=== PATIENT | male | born 1965 | race Caucasian/White ===

== ENCOUNTER 2017-04-12 19:37 | Emergency (ER) | payer MEDICAID ==
--- NOTE | 2017-04-12 21:34 | EDM.PDOCBH ---
ED HPI GENERAL MEDICAL PROBLEM - General Chief Complaint: Drug or Alcohol Abuse Time Seen by Provider: 04/12/17 19:37 Source of Information: Reports: Patient, Police - History of Present Illness INITIAL COMMENTS - FREE TEXT/NARRATIVE: 52 years old w m came the the ed with the police after he was found drunk in the car, did not drive, however. pt came to the ed for longterm clearance. Pt has IDDM with poor compliance and is drinking daily. no other acute medical issues. BP 105/83 pulse 91 RR 16 pulse ox 96 temp 36.4 Onset: Today Onset Date: 04/12/17 Onset Time: 19:00 Duration: Chronic Location: Reports: Generalized Improves with: Reports: None Worsens with: Reports: None Context: Reports: Other (pt was found drunk while in the car) Associated Symptoms: Reports: No Other Symptoms - Related Data Allergies Allergy/AdvReac Type Severity Reaction Status Date / Time No Known Allergies Allergy Verified 04/12/17 19:56 Home Meds: Home Meds . [Unable to Verify Home Med List] 04/12/17 [History] Past Medical History Cardiovascular History: Reports: Hypertension, [place] Other Cardiovascular History: [place] x2, last 07/05/2015 Endocrine/Metabolic History: Reports: Diabetes, Type I Social & Family History - Tobacco Use Smoking Status *Q: Never Smoker Second Hand Smoke Exposure: No - Caffeine Use Caffeine Use: Reports: None - Recreational Drug Use Recreational Drug Use: No ED ROS GENERAL - Review of Systems Review Of Systems: See Below Constitutional: Reports: No Symptoms HEENT: Reports: No Symptoms Respiratory: Reports: No Symptoms Cardiovascular: Reports: No Symptoms Endocrine: Reports: No Symptoms GI/Abdominal: Reports: No Symptoms : Reports: No Symptoms Musculoskeletal: Reports: No Symptoms Skin: Reports: No Symptoms Neurological: Reports: No Symptoms Psychiatric: Reports: No Symptoms Hematologic/Lymphatic: Reports: No Symptoms Immunologic: Reports: No Symptoms ED EXAM, BEHAVIORAL HEALTH - Physical Exam Exam: See Below Exam Limited By: No Limitations General Appearance: Alert, WD/WN, No Apparent Distress Eye Exam: Bilateral Eye: Normal Inspection Ears: Normal External Exam Nose: Normal Inspection Throat/Mouth: Normal Inspection Head: Atraumatic Neck: Normal Inspection Respiratory/Chest: No Respiratory Distress, Lungs Clear, Normal Breath Sounds Cardiovascular: Normal Peripheral Pulses, Regular Rate, Rhythm, No Edema GI/Abdominal: Normal Bowel Sounds, Soft, Non-Tender, No Organomegaly (Male) Exam: Deferred Rectal (Males) Exam: Deferred Back Exam: Normal Inspection, Full Range of Motion Extremities: Normal Inspection, Normal Range of Motion, Non-Tender, No Pedal Edema Neurological: Alert, Normal Mood/Affect, CN II-XII Intact, Normal Cognition, Normal Gait, Oriented x 3 Psychiatric: Alert, Normal Affect, Normal Cognition, Normal Mood Skin Exam: Warm, Dry, Intact, Normal color, No rash COURSE, BEHAVIORAL HEALTH COMP - Course Vital Signs: Last Vital Signs Temp 36.8 C 04/12/17 19:57 Pulse 91 04/12/17 19:57 Resp 16 04/12/17 19:57 BP 105/83 04/12/17 19:57 Pulse Ox 97 04/12/17 19:57 52 years old w m came the the ed with the police after he was found drunk in the car, did not drive, however. pt came to the ed for longterm clearance. Pt has IDDM with poor compliance and is drinking daily. no other acute medical issues. BP 105/83 pulse 91 RR 16 pulse ox 96 temp 36.4 PE: 52 y.o.w.m chronic ETOH abuse with peripheral muscle wasting. labs: WBC 3.6 ETOH 0.37 Na 128 K 4.1 GFR > 60 GLc 225 A1C 8.8 Impression: Poor Diabetic compliance, ETOH abuse, pt is cleared for longterm Tx: none Plan: As per police, pt will be only for a few hours in longterm till picked up through bail. D/C with instructions Orders, Labs, Meds: Laboratory Tests 04/12/17 04/12/17 04/12/17 Range/Units 19:55 19:55 19:55 WBC (4.5-12.0) X10-3/uL RBC (4.30-5.75) x10(6)uL Hgb (11.5-15.5) g/dL Hct (30.0-51.3) % MCV (80-96) fL MCH (27.7-33.6) pg MCHC (32.2-35.4) g/dL RDW (11.5-15.5) % Plt Count (125-369) X10(3)uL MPV (7.4-10.4) fL Neut % (Auto) (46-82) % Lymph % (Auto) (13-37) % [place] % (Auto) (4-12) % Eos % (Auto) (1.0-5.0) % Baso % (Auto) (0-2) % Neut # (Auto) (1.6-8.3) # Lymph # (Auto) (0.6-5.0) # [place] # (Auto) (0.0-1.3) # Eos # (Auto) (0.0-0.8) # Baso # (Auto) (0.0-0.2) # Sodium 128 L (135-145) mmol/L Potassium 4.1 (3.5-5.3) mmol/L Chloride 90 L (100-110) mmol/L Carbon Dioxide 24 (23-29) mmol/L BUN 8 (5-20) mg/dL Creatinine 0.8 (0.6-1.3) mg/dL Est Cr Clr Drug Dosing 104.43 mL/min Estimated GFR (MDRD) > 60 (>60) BUN/Creatinine Ratio 10.0 (9-20) Glucose 227 H (80-116) mg/dL Hemoglobin A1c 8.8 H (4.0-6.0) % Calcium 9.0 (8.6-10.2) mg/dL Ethyl Alcohol 0.37 H* (<0.01) % 04/12/ Range/Units 19:55 WBC 3.5 L (4.5-12.0) X10-3/uL RBC 4.50 (4.30-5.75) x10(6)uL Hgb 15.0 (11.5-15.5) g/dL Hct 43.3 (30.0-51.3) % MCV 96.3 H (80-96) fL MCH 33.3 (27.7-33.6) pg MCHC 34.6 (32.2-35.4) g/dL RDW 13.4 (11.5-15.5) % Plt Count 89 L (125-369) X10(3)uL MPV 8.5 (7.4-10.4) fL Neut % (Auto) 52.5 (46-82) % Lymph % (Auto) 35.5 (13-37) % [place] % (Auto) 10.3 (4-12) % Eos % (Auto) 1 (1.0-5.0) % Baso % (Auto) 1 (0-2) % Neut # (Auto) 1.9 (1.6-8.3) # Lymph # (Auto) 1.2 (0.6-5.0) # [place] # (Auto) 0.4 (0.0-1.3) # Eos # (Auto) 0.0 (0.0-0.8) # Baso # (Auto) 0.0 (0.0-0.2) # Sodium (135-145) mmol/L Potassium (3.5-5.3) mmol/L Chloride (100-110) mmol/L Carbon Dioxide (23-29) mmol/L BUN (5-20) mg/dL Creatinine (0.6-1.3) mg/dL Est Cr Clr Drug Dosing mL/min Estimated GFR (MDRD) (>60) BUN/Creatinine Ratio (9-20) Glucose (80-116) mg/dL Hemoglobin A1c (4.0-6.0) % Calcium (8.6-10.2) mg/dL Ethyl Alcohol (<0.01) % Departure - Departure Time of Disposition: 21:32 Disposition: Home, Self-Care 01 Condition: Good Clinical Impression: Medical clearance for incarceration - Discharge Information Referrals: PCP,None [Primary Care Provider] - Forms: ED Department Discharge Additional Instructions: you are cleared for longterm, please no ETON. please cont your meds, please f/u
== END 2017-04-12 21:39 | disposition home or self-care (01) ==
LOC: FB.ED 19:37
DX: Z02.89 Encounter for other administrative examinations (principal); I10 Essential (primary) hypertension; E10.9 Type 1 diabetes mellitus without complications; M62.50 Muscle wasting and atrophy, not elsewhere classified, unspecified site; F10.20 Alcohol dependence, uncomplicated; Y90.0 Blood alcohol level of less than 20 mg/100 ml
CPT/HCPCS: 36415; 80048; 83036; 85025; 99283; G0480

== ENCOUNTER 2017-04-13 14:41 | Inpatient (IN) | payer MEDICAID ==
[2017-04-13] MEDS ORDERED: Sodium Chloride 0.9% 1,000 ML IV ONE (14:44)
[2017-04-13] MEDS ORDERED: LORazepam 2 MG/ML MDV IVPUSH ONE (14:52)
--- NOTE | 2017-04-13 14:52 | EDM.PDOC ---
ED HPI GENERAL MEDICAL PROBLEM - General Chief Complaint: Neuro Symptoms/Deficits Stated Complaint: SEIZURE Time Seen by Provider: 04/13/17 14:41 Source of Information: Reports: Patient, EMS, Police History Limitations: Reports: Altered Mental Status - History of Present Illness INITIAL COMMENTS - FREE TEXT/NARRATIVE: 52 y.o.w.m with h/o chronic ETOH abuse, ETOH related Szs, IDDM, noncompliance. i have seen him in the ED yesterday for fci clearance. His ETOH was 0.37 He was was cleared for fci because, as per office, pt will be in fci for a few hours only till he is "bailed out". Today, pt had a TC seizure while walking to his cell, witnessed. 911 was called. BS was 552 as the EMS arrived. Pt had a tongue bite at his r side of his tongue and was lethargic. Pt had a fine peripheral fine Tremor BP 162/82 pulse 122 temp 36.2 pulse ox 94% RA, on Sz precaution Onset: Today Onset Date: 04/13/17 Onset Time: 14:00 Duration: Minutes: Location: Reports: Other (s/p GM sz) - Related Data Allergies Allergy/AdvReac Type Severity Reaction Status Date / Time No Known Allergies Allergy Verified 04/13/17 15:32 Home Meds: Home Meds Folic Acid 1 mg PO DAILY 04/13/17 [History] Lisinopril 20 mg PO DAILY 04/13/17 [History] Metoprolol Succinate 12.5 mg PO BID 04/13/17 [History] Naltrexone 50 mg PO DAILY 04/13/17 [History] Sertraline [Zoloft] 100 mg PO DAILY 04/13/17 [History] atorvaSTATin [Lipitor] 10 mg PO DAILY 04/13/17 [History] traZODone 100 mg PO BEDTIME 04/13/17 [History] Past Medical History Cardiovascular History: Reports: Hypertension, [place] Other Cardiovascular History: [place] x2, last 07/05/2015 Endocrine/Metabolic History: Reports: Diabetes, Type I Social & Family History - Tobacco Use Smoking Status *Q: Never Smoker Second Hand Smoke Exposure: No - Caffeine Use Caffeine Use: Reports: None - Recreational Drug Use Recreational Drug Use: No ED ROS GENERAL - Review of Systems Review Of Systems: Unable To Obtain (lethargic, post ictal) - Physical Exam Exam: See Below Exam Limited By: Altered Mental Status General Appearance: WD/WN, No Apparent Distress, Lethargic, Mild Distress Eye Exam: Bilateral Eye: Normal Inspection Ears: Normal External Exam Nose: Normal Inspection Throat/Mouth: Other (tongue bite) Head Exam: Atraumatic, Normocephalic Course - Vital Signs Text/Narrative:: 52 y.o.w.m with h/o chronic ETOH abuse, ETOH related Szs, IDDM, noncompliance. i have seen him in the ED yesterday for fci clearance. His ETOH was 0.37 He was was cleared for fci because, as per office, pt will be in fci for a few hours only till he is "bailed out". Today, pt had a TC seizure while walking to his cell, witnessed. 911 was called. BS was 552 as the EMS arrived. Pt had a tongue bite at his r side of his tongue and was lethargic. Pt had a fine peripheral fine Tremor BP 162/82 pulse 122 temp 36.2 pulse ox 94% RA, on Sz precaution. Pt hit his head while he fell as per police. PE: Letargic, fine peripheral tremor, Tongue bite Labs; BS 435, Na 126 K 4.7 WBC 5.3 HGB 13.9 HCT 39.4 ETOH 0.01 UDS is pending Imaging: CT head: results are pending Impression: ETOH related Gand Mal Seizure, HTN. IDDM with hyperglycemia, Tx: Reg insulin, NS, Ativan. 4.31 pm consultation: Dr. Starr, Hospitalist: accept pt for admission to ICU on [facility] protocol. Reexam: Improved BP 162/87 BS 223, tremor improved. ABG results are pending Plan: Admit to ICU Last Recorded V/S: Last Vital Signs Temp 37.2 C 04/13/17 16:30 Pulse 115 H 04/13/17 16:30 Resp 18 04/13/17 17:00 BP 159/88 H 04/13/17 17:00 Pulse Ox 97 04/13/17 17:00 - Orders/Labs/Meds Orders: Active Orders 24 hr Category Date Time Status Sodium Chloride 0.9% [Saline Flush] Med 04/13/17 14:44 Active 10 ml FLUSH ASDIRECTED PRN Peripheral IV Insertion Adult [OM.PC] Routine Oth 04/13/17 14:44 Ordered Seizure Precautions [OM.PC] Routine Oth 04/13/17 14:59 Ordered Medication Orders Lactated Ringer's (Ringers, Lactated) 1,000 mls @ 125 mls/hr IV ASDIRECTED PEGGY Last Admin: 04/13/17 16:50 Dose: 125 mls/hr Insulin Aspart (Novolog) 0 unit SUBCUT TIDMEALS PEGGY PRN Reason: Protocol Sodium Chloride (Saline Flush) 10 ml FLUSH ASDIRECTED PRN PRN Reason: Keep Vein Open Last Admin: 04/13/17 16:23 Dose: 10 ml Labs: Laboratory Tests 04/13/17 04/13/17 04/13/17 Range/Units 14:55 14:55 14:55 WBC 5.4 (4.5-12.0) X10-3/uL RBC 4.09 L (4.30-5.75) x10(6)uL Hgb 13.8 (11.5-15.5) g/dL Hct 39.6 (30.0-51.3) % MCV 97.0 H (80-96) fL MCH 33.7 H (27.7-33.6) pg MCHC 34.7 (32.2-35.4) g/dL RDW 13.2 (11.5-15.5) % Plt Count 102 L (125-369) X10(3)uL MPV 8.8 (7.4-10.4) fL Neut % (Auto) 72.9 (46-82) % Lymph % (Auto) 14.8 (13-37) % [place] % (Auto) 11.6 (4-12) % Eos % (Auto) 0 L (1.0-5.0) % Baso % (Auto) 1 (0-2) % Neut # (Auto) 4.0 (1.6-8.3) # Lymph # (Auto) 0.8 (0.6-5.0) # [place] # (Auto) 0.6 (0.0-1.3) # Eos # (Auto) 0.0 (0.0-0.8) # Baso # (Auto) 0.0 (0.0-0.2) # Sodium 126 L (135-145) mmol/L Potassium 4.7 (3.5-5.3) mmol/L Chloride 91 L (100-110) mmol/L Carbon Dioxide 14 L (23-29) mmol/L BUN 14 (5-20) mg/dL Creatinine 1.3 (0.6-1.3) mg/dL Est Cr Clr Drug Dosing TNP Estimated GFR (MDRD) 58 L (>60) BUN/Creatinine Ratio 10.8 (9-20) Glucose 434 H* D (80-116) mg/dL Calcium 8.8 (8.6-10.2) mg/dL Total Bilirubin 2.2 H (0.1-1.3) mg/dL Direct Bilirubin 0.3 H (0.1-0.2) mg/dL AST 125 H (5-27) IU/L ALT 67 H (14-26) IU/L Alkaline Phosphatase 88 (56-112) IU/L Creatine Kinase (60-160) IU/L Total Protein 8.1 H (6.0-8.0) g/dL Albumin 4.6 (3.5-5.2) g/dL Ethyl Alcohol < 0.01 (<0.01) % 04/13/17 Range/Units 14:55 WBC (4.5-12.0) X10-3/uL RBC (4.30-5.75) x10(6)uL Hgb (11.5-15.5) g/dL Hct (30.0-51.3) % MCV (80-96) fL MCH (27.7-33.6) pg MCHC (32.2-35.4) g/dL RDW (11.5-15.5) % Plt Count (125-369) X10(3)uL MPV (7.4-10.4) fL Neut % (Auto) (46-82) % Lymph % (Auto) (13-37) % [place] % (Auto) (4-12) % Eos % (Auto) (1.0-5.0) % Baso % (Auto) (0-2) % Neut # (Auto) (1.6-8.3) # Lymph # (Auto) (0.6-5.0) # [place] # (Auto) (0.0-1.3) # Eos # (Auto) (0.0-0.8) # Baso # (Auto) (0.0-0.2) # Sodium (135-145) mmol/L Potassium (3.5-5.3) mmol/L Chloride (100-110) mmol/L Carbon Dioxide (23-29) mmol/L BUN (5-20) mg/dL Creatinine (0.6-1.3) mg/dL Est Cr Clr Drug Dosing Estimated GFR (MDRD) (>60) BUN/Creatinine Ratio (9-20) Glucose (80-116) mg/dL Calcium (8.6-10.2) mg/dL Total Bilirubin (0.1-1.3) mg/dL Direct Bilirubin (0.1-0.2) mg/dL AST (5-27) IU/L ALT (14-26) IU/L Alkaline Phosphatase (56-112) IU/L Creatine Kinase 269 H (60-160) IU/L Total Protein (6.0-8.0) g/dL Albumin (3.5-5.2) g/dL Ethyl Alcohol (<0.01) % Meds: Medications Generic Name Dose Route Start Last Admin Trade Name Freq PRN Reason Stop Dose Admin Lactated Ringer's 1,000 mls @ 125 mls/hr 04/13/17 16:45 04/13/17 16:50 Ringers, Lactated IV 125 mls/hr ASDIRECTED PEGGY Administration Insulin Aspart 0 unit 04/13/17 18:00 Novolog SUBCUT TIDMEALS [facility] Protocol Sodium Chloride 10 ml 04/13/17 14:44 04/13/17 16:23 Saline Flush FLUSH 10 ml ASDIRECTED PRN Administration Keep Vein Open Discontinued Medications Generic Name Dose Route Start Last Admin Trade Name Freq PRN Reason Stop Dose Admin Clonidine HCl 0.1 mg 04/13/17 16:04 04/13/17 16:40 Catapres PO 04/13/17 16:05 Not Given ONETIME ONE Sodium Chloride 1,000 mls @ 999 mls/hr 04/13/17 14:44 04/13/17 15:17 Normal Saline IV 04/13/17 15:44 999 mls/hr .BOLUS ONE Administration Lactated Ringer's 1,000 mls @ 125 mls/hr 04/13/17 16:15 Ringers, Lactated IV ASDIRECTED PEGGY Insulin Human Regular 7 unit 04/13/17 17:30 Humulin R SUBCUT BIDAC PEGGY Protocol Insulin Human Regular 7 unit 04/13/17 15:03 04/13/17 15:11 Humulin R SUBCUT 04/13/17 15:04 7 units BIDAC STA Administration Protocol Insulin Human Regular 10 unit 04/13/17 16:05 04/13/17 16:47 Humulin R SUBCUT 04/13/17 16:06 Not Given ONETIME STA Protocol Labetalol HCl 10 mg 04/13/17 16:08 04/13/17 16:39 Normodyne IVPUSH 04/13/17 16:09 Not Given ONETIME ONE Protocol Lorazepam 1 mg 04/13/17 14:52 04/13/17 15:04 Ativan IVPUSH 04/13/17 14:53 1 mg ONETIME ONE Administration Lorazepam 1 mg 04/13/17 16:07 04/13/17 16:21 Ativan IVPUSH 04/13/17 16:08 1 mg ONETIME STA Administration Lorazepam 1 mg 04/13/17 16:14 Ativan IV Q4H PRN Nausea/Vomiting Departure - Departure Time of Disposition: 16:49 Disposition: Admitted As Inpatient 67 Condition: Fair Clinical Impression: Seizure EtOH dependence Qualifiers: Substance use status: other alcohol-induced disorder Qualified Code(s): F10.288 - Alcohol dependence with other alcohol-induced disorder - Discharge Information - My Orders Last 24 Hours: My Active Orders 04/13/17 14:44 Sodium Chloride 0.9% [Saline Flush] 10 ml FLUSH ASDIRECTED PRN Peripheral IV Insertion Adult [OM.PC] Routine 04/13/17 14:59 Seizure Precautions [OM.PC] Routine - Assessment/Plan Last 24 Hours: My Active Orders 04/13/17 14:44 Sodium Chloride 0.9% [Saline Flush] 10 ml FLUSH ASDIRECTED PRN Peripheral IV Insertion Adult [OM.PC] Routine 04/13/17 14:59 Seizure Precautions [OM.PC] Routine
[2017-04-13] MEDS ORDERED: Insulin Regular, Human 100 Units/ML 3 ML Vial SUBCUT STA ×2 (15:03→16:05)
[2017-04-13] MEDS ORDERED: cloNIDine 0.1 MG Tab PO ONE (16:04)
[2017-04-13] MEDS ORDERED: LORazepam 2 MG/ML MDV IVPUSH STA (16:07)
[2017-04-13] MEDS ORDERED: Labetalol 20 MG/4 ML Syringe IVPUSH ONE (16:08)
[2017-04-13] MEDS ORDERED: LORazepam 2 MG/ML MDV IV PRN (16:14)
[2017-04-13] MEDS ORDERED: Lactated Ringers 1,000 ML IV SCH (16:15)
[2017-04-13] MEDS: Sodium Chloride 0.9% 10 ML Syringe FLUSH PRN (16:23)
[2017-04-13] MEDS: Insulin Aspart 100 Units/ML 3 ML Pen SUBCUT SCH (16:30)
[2017-04-13] MEDS: Lactated Ringers 1,000 ML IV SCH (16:50)
[2017-04-13] MEDS ORDERED: Insulin Regular, Human 100 Units/ML 3 ML Vial SUBCUT SCH (17:30)
--- NOTE | 2017-04-13 17:55 | PCM.HP ---
H&P History of Present Illness - General Date of Service: 04/13/17 Admit Problem/Dx: Admission Diagnosis/Problem Admission Diagnosis/Problem Seizure Source of Information: Patient, EMS Notes Reviewed, Police - History of Present Illness Initial Comments - Free Text/Narative: 52-year-old male known to have alcohol dependence. Was brought to by law enforcement after he had a tonic-clonic seizure at the snf. Currently I am not sure how long it lasted but he was post ictal at the ER, with no bowel or urine incontinence. He stated that he has had a seizure before,about 4 years ago also while withdrawing from alcohol also. He was here yesterday,but discharged to the To the snf. His ETOH level was 0.37. He also states that he has Type 1 diabetes of unknown control. He has depression,hypertension and a history of coronary disease previously stable.At the time that I examined him,he complains of no headache no chest pain. He feels slightly anxious trembling and sweaty. He currently sees Dr. Chou in [facility] - Related Data Allergies/Adverse Reactions: Allergies Allergy/AdvReac Type Severity Reaction Status Date / Time No Known Allergies Allergy Verified 04/13/17 15:32 Home Medications: Home Meds Amylase/Lipase/Protease [Rashida CRANDALL 24,000 Unit] 1 cap PO .6 TIMES PER DAY [History] Folic Acid 1 mg PO DAILY 04/13/17 [History] Insulin Aspart [Novolog] 1 unit SQ TIDMEALS 04/13/17 [History] Insulin Glargine,Hum.Rec.Anlog [Lantus Solostar] 28 unit SQ BEDTIME 04/13/17 [ History] LORazepam 1 mg PO TID PRN 04/13/17 [History] Lisinopril 20 mg PO DAILY 04/13/17 [History] Metoprolol Succinate 12.5 mg PO BID 04/13/17 [History] Naltrexone 50 mg PO DAILY 04/13/17 [History] Sertraline [Zoloft] 100 mg PO DAILY 04/13/17 [History] atorvaSTATin [Lipitor] 10 mg PO DAILY 04/13/17 [History] traZODone 100 mg PO BEDTIME 04/13/17 [History] Past Medical History Cardiovascular History: Reports: Hypertension, [place] Other Cardiovascular History: [place] x2, last 07/05/2015 Neurological History: Reports: Seizure Psychiatric History: Reports: Other (See Below) Other Psychiatric History: alcohol use Endocrine/Metabolic History: Reports: Diabetes, Type I Social & Family History - Family History Family Medical History: Unobtainable - Tobacco Use Smoking Status *Q: Never Smoker Second Hand Smoke Exposure: No - Caffeine Use Caffeine Use: Reports: None - Recreational Drug Use Recreational Drug Use: No H&P Review of Systems - Review of Systems: Review Of Systems: See Below General: Reports: No Symptoms HEENT: Reports: No Symptoms Pulmonary: Reports: No Symptoms Cardiovascular: Reports: No Symptoms Gastrointestinal: Reports: No Symptoms Genitourinary: Reports: No Symptoms Musculoskeletal: Reports: No Symptoms Skin: Reports: No Symptoms Psychiatric: Reports: Depression Neurological: Reports: Seizure, Tremors Hematologic/Lymphatic: Reports: No Symptoms Immunologic: Reports: No Symptoms Exam - Exam Exam: See Below - Vital Signs Vital Signs: Last Vital Signs Temp 99.0 F 04/13/17 16:30 Pulse 115 H 04/13/17 16:30 Resp 18 04/13/17 17:00 BP 159/88 H 04/13/17 17:00 Pulse Ox 97 04/13/17 17:00 Weight: 66.315 kg - Exam General: Alert, Oriented, 4 HEENT: PERRLA, Hearing Intact, Mucosa Moist & [place], Nares Patent, Normal Nasal Septum, Posterior Pharynx Clear, Conjunctiva Clear, EOMI, EACs Clear, TMs Clear Neck: Supple, Trachea Midline, 2 Lungs: Clear to Auscultation, Normal Respiratory Effort Cardiovascular: Regular Rate, Regular Rhythm GI/Abdominal Exam: Normal Bowel Sounds, Soft, Non-Tender, No Organomegaly, No Distention, No Abnormal Bruit, No Mass, Pelvis Stable (Male) Exam: Deferred Rectal (Males) Exam: Deferred Back Exam: Normal Inspection, Full Range of Motion, NT Extremities: Normal Inspection, Normal Range of Motion, Non-Tender, No Pedal Edema, Normal Capillary Refill Skin: Warm, Dry, Intact Neurological: Cranial Nerves Intact, Reflexes Equal Bilateral Neuro Extensive - Mental Status: Alert, Oriented x3, Normal Mood/Affect, Normal Cognition Neuro Extensive - Motor, Sensory, Reflexes: CN II-XII Intact, Normal Gait, Normal Reflexes Psychiatric: Alert, Normal Affect, Normal Mood - Patient Data Lab Results Last 24 hrs: Laboratory Results - last 24 hr 04/13/17 04/13/17 Range/Units 16:28 16:44 POC Glucose 203 H (80-116) mg/dL Urine Opiates Screen Negative (NEGATIVE) Ur Oxycodone Screen Negative (NEGATIVE) Ur Propoxyphene Screen Negative (NEGATIVE) Ur Barbituates Screen Negative (NEGATIVE) Ur Tricyclics Screen Negative (NEGATIVE) Ur Phencyclidine Scrn Negative (NEGATIVE) Ur Amphetamine Screen Negative (NEGATIVE) Urine MDMA Screen Negative (NEGATIVE) U Benzodiazepines Scrn Positive H (NEGATIVE) U Cocaine Metab Screen Negative (NEGATIVE) U Marijuana (THC) Screen Negative (NEGATIVE) Result Diagrams: 04/13/17 14:55 04/13/17 14:55 EKG INTERPRETATION Rhythm: NSR *Q Meaningful Use (ADM) - VTE *Q VTE Criteria *Q: - Stroke *Q Stroke Criteria *Q: - AMI *Q AMI Criteria *Q: - Problem List (1) Alcohol withdrawal SNOMED Code(s): 375746464 ICD Code: F10.239 - ALCOHOL DEPENDENCE WITH WITHDRAWAL, UNSPECIFIED Status : Acute Current Visit: Yes Qualifiers: Complication of substance-induced condition: with unspecified complication Qualified Code(s): F10.239 - Alcohol dependence with withdrawal, unspecified (2) Seizure due to alcohol withdrawal SNOMED Code(s): 650495239 ICD Code: F10.239 - ALCOHOL DEPENDENCE WITH WITHDRAWAL, UNSPECIFIED; R56.9 - UNSPECIFIED CONVULSIONS Status: Acute Current Visit: Yes Qualifiers: Complication of substance-induced condition: with unspecified complication Qualified Code(s): F10.239 - Alcohol dependence with withdrawal, unspecified; R56.9 - Unspecified convulsions; R56.9 - Unspecified convulsions; R56.9 - Unspecified convulsions; R56.9 - Unspecified convulsions (3) Diabetes type 1, uncontrolled SNOMED Code(s): 57605753 ICD Code: E10.65 - TYPE 1 DIABETES MELLITUS WITH HYPERGLYCEMIA Status: Acute Current Visit: Yes (4) HTN (hypertension) SNOMED Code(s): 95170861 ICD Code: I10 - ESSENTIAL (PRIMARY) HYPERTENSION Status: Acute Current Visit: Yes Qualifiers: Hypertension type: essential hypertension Qualified Code(s): I10 - Essential (primary) hypertension (5) EtOH dependence SNOMED Code(s): 46340830 ICD Code: F10.20 - ALCOHOL DEPENDENCE, UNCOMPLICATED Status: Acute Current Visit: Yes Qualifiers: Substance use status: other alcohol-induced disorder Qualified Code(s): F10.288 - Alcohol dependence with other alcohol-induced disorder (6) Hyponatremia SNOMED Code(s): 91354146 ICD Code: E87.1 - HYPO-OSMOLALITY AND HYPONATREMIA Status: Acute Current Visit: Yes Problem List Initiated/Reviewed/Updated: Yes Orders Last 24hrs: Active Orders 24 hr Category Date Time Status Bedrest Bathroom Privileges [RC] ASDIRECTED Care 04/13/17 17:46 Ordered Blood Glucose Check, Bedside [RC] TIDMEALS Care 04/13/17 17:46 Ordered CIWAA Assessment [RC] ASDIRECTED Care 04/13/17 16:25 Active Cardiac Monitoring [RC] CONTINUOUS Care 04/13/17 17:47 Ordered Height and Weight [RC] DAILY Care 04/13/17 17:46 Ordered Intake and Output [RC] QSHIFT Care 04/13/17 17:47 Ordered Oxygen Therapy [RC] PRN Care 04/13/17 17:46 Ordered VTE/DVT Education [RC] Per Unit Routine Care 04/13/17 17:46 Ordered Consistent Carbohydrate Diet [DIET] Diet 04/13/17 Dinner Ordered Head wo Cont [CT] Stat Exams 04/13/17 16:48 Taken ABG [BLOOD GAS ARTERIAL] [BG] Routine Lab 04/13/17 16:51 Ordered CBC W/O DIFF,HEMOGRAM [HEME] AM Lab 04/14/17 05:11 Ordered COMPREHENSIVE METABOLIC PN,CMP [CHEM] AM Lab 04/14/17 05:11 Ordered MAGNESIUM [CHEM] Stat Lab 04/13/17 17:46 Ordered PHOSPHORUS [CHEM] AM Lab 04/14/17 05:11 Ordered Insulin Aspart [NovoLOG] Med 04/13/17 18:00 Active See Protocol SUBCUT TIDMEALS LORazepam [Ativan] Med 04/13/17 17:46 Ordered 1 mg IV Q2H PRN Lactated Ringers [Ringers, Lactated] 1,000 ml Med 04/13/17 16:45 Active IV ASDIRECTED Thiamine [Vitamin B-1] Med 04/13/17 18:00 Ordered 100 mg IV DAILY Medication Orders Lactated Ringer's (Ringers, Lactated) 1,000 mls @ 125 mls/hr IV ASDIRECTED [facility] Last Admin: 04/13/17 16:50 Dose: 125 mls/hr Insulin Aspart (Novolog) 0 unit SUBCUT TIDMEALS [facility] PRN Reason: Protocol Lorazepam (Ativan) 1 mg IV Q2H PRN PRN Reason: Nausea/Vomiting Sodium Chloride (Saline Flush) 10 ml FLUSH ASDIRECTED PRN PRN Reason: Keep Vein Open Last Admin: 04/13/17 16:23 Dose: 10 ml Thiamine HCl (Vitamin B-1) 100 mg IV DAILY [facility] Assessment/Plan Comment:: Admit for IV fluid resuscitation, lorazepam when necessary and sliding scale of insulin. Also given thiamine 100 mg IV. Will allow him to eat regularly with her carbohydrate restricted diet, and put him on seizure precautions. I will repeat a basic metabolic panel in the morning.
[2017-04-13] MEDS: Thiamine 200 MG/2 ML MDV IV SCH (18:23)
[2017-04-13] MEDS: LORazepam 2 MG/ML MDV IV PRN ×3 (18:29→23:43)
[2017-04-13] MEDS ORDERED: traZODone 50 MG Tab ONE (20:07)
[2017-04-13] MEDS: traZODone 100 MG Tab PO SCH (20:15)
[2017-04-13] MEDS ORDERED: Metoprolol Succinate 25 MG Tab.ER PO SCH (21:00)
[2017-04-14] MEDS: Lactated Ringers 1,000 ML IV SCH (00:53)
--- NOTE | 2017-04-14 08:12 | PCM.PN ---
- General Info Date of Service: 04/14/17 Admission Dx/Problem (Free Text): Patient states he is less shaky today and he feels better. He denies fevers, chills, chest pain, shortness breath, leg swelling. He has had no seizures since she's been in her. He states his last seizure was due to a cholesterol. He says he does drink. He's been to treatment before and he says it doesn't help him. - Patient Data Vitals - Most Recent: Last Vital Signs Temp 98.4 F 04/14/17 05:00 Pulse 90 04/14/17 05:00 Resp 18 04/14/17 05:00 BP 131/94 H 04/14/17 05:00 Pulse Ox 98 04/14/17 05:00 Weight - Most Recent: 161 lb I&O - Last 24 Hours: Intake & Output 04/13/17 04/14/17 04/14/17 22:59 06:59 14:59 Intake Total 1213 1332 Output Total 400 1250 Balance 813 82 Lab Results Last 24 Hours: Laboratory Results - last 24 hr 04/13/17 04/13/17 04/13/17 Range/Units 16:28 16:44 17:45 WBC (4.5-12.0) X10-3/uL RBC (4.30-5.75) x10(6)uL Hgb (11.5-15.5) g/dL Hct (30.0-51.3) % MCV (80-96) fL MCH (27.7-33.6) pg MCHC (32.2-35.4) g/dL RDW (11.5-15.5) % Plt Count (125-369) X10(3)uL POC VBG pH 7.43 H (7.31-7.41) POC VBG pCO2 34.6 L (41-51) mmHG POC VBG HCO3 23.1 (23-28) mmol/L POC VBG Total CO2 24 (24-29) mmol/L POC VBG Base Excess -1 (-2-3) mmol/L Sodium (135-145) mmol/L Potassium (3.5-5.3) mmol/L Chloride (100-110) mmol/L Carbon Dioxide (23-29) mmol/L BUN (5-20) mg/dL Creatinine (0.6-1.3) mg/dL Est Cr Clr Drug Dosing mL/min Estimated GFR (MDRD) (>60) BUN/Creatinine Ratio (9-20) Glucose (80-116) mg/dL POC Glucose 203 H (80-116) mg/dL Calcium (8.6-10.2) mg/dL Phosphorus (3.0-4.6) mg/dL Total Bilirubin (0.1-1.3) mg/dL AST (5-27) IU/L ALT (14-26) IU/L Alkaline Phosphatase (56-112) IU/L Total Protein (6.0-8.0) g/dL Albumin (3.5-5.2) g/dL Globulin g/dL Albumin/Globulin Ratio Urine Color (YELLOW) Urine Appearance (CLEAR) Urine pH (5.0-6.5) Ur Specific [place] (1.010-1.025) Urine Protein (NEGATIVE) mg/dL Urine Glucose (UA) (NEGATIVE) mg/dL Urine Ketones (NEGATIVE) mg/dL Urine Occult Blood (NEGATIVE) Urine Nitrite (NEGATIVE) Urine Bilirubin (NEGATIVE) Urine Urobilinogen (NEGATIVE) mg/dL Ur Leukocyte Esterase (NEGATIVE) Urine RBC (0) Urine WBC (0) Ur Squamous Epith Cells (NS,R,O) Urine Bacteria (NS) Urine Opiates Screen Negative (NEGATIVE) Ur Oxycodone Screen Negative (NEGATIVE) Ur Propoxyphene Screen Negative (NEGATIVE) Ur Barbituates Screen Negative (NEGATIVE) Ur Tricyclics Screen Negative (NEGATIVE) Ur Phencyclidine Scrn Negative (NEGATIVE) Ur Amphetamine Screen Negative (NEGATIVE) Urine MDMA Screen Negative (NEGATIVE) U Benzodiazepines Scrn Positive H (NEGATIVE) U Cocaine Metab Screen Negative (NEGATIVE) U Marijuana (THC) Screen Negative (NEGATIVE) 04/13/17 04/14/17 04/14/17 Range/Units 20:15 06:05 06:05 WBC 6.9 (4.5-12.0) X10-3/uL RBC 3.82 L (4.30-5.75) x10(6)uL Hgb 13.1 (11.5-15.5) g/dL Hct 37.0 (30.0-51.3) % MCV 96.8 H (80-96) fL MCH 34.3 H (27.7-33.6) pg MCHC 35.4 (32.2-35.4) g/dL RDW 13.1 (11.5-15.5) % Plt Count 95 L (125-369) X10(3)uL POC VBG pH (7.31-7.41) POC VBG pCO2 (41-51) mmHG POC VBG HCO3 (23-28) mmol/L POC VBG Total CO2 (24-29) mmol/L POC VBG Base Excess (-2-3) mmol/L Sodium 130 L (135-145) mmol/L Potassium 3.8 (3.5-5.3) mmol/L Chloride 95 L (100-110) mmol/L Carbon Dioxide 24 (23-29) mmol/L BUN 9 (5-20) mg/dL Creatinine 0.8 (0.6-1.3) mg/dL Est Cr Clr Drug Dosing 105.69 mL/min Estimated GFR (MDRD) > 60 (>60) BUN/Creatinine Ratio 11.3 (9-20) Glucose 265 H D (80-116) mg/dL POC Glucose (80-116) mg/dL Calcium 8.5 L (8.6-10.2) mg/dL Phosphorus 2.2 L (3.0-4.6) mg/dL Total Bilirubin 2.4 H (0.1-1.3) mg/dL AST 66 H D (5-27) IU/L ALT 49 H D (14-26) IU/L Alkaline Phosphatase 73 (56-112) IU/L Total Protein 7.1 (6.0-8.0) g/dL Albumin 3.9 (3.5-5.2) g/dL Globulin 3.2 g/dL Albumin/Globulin Ratio 1.2 Urine Color Yellow (YELLOW) Urine Appearance Clear (CLEAR) Urine pH 5.0 (5.0-6.5) Ur Specific [place] 1.015 (1.010-1.025) Urine Protein Negative (NEGATIVE) mg/dL Urine Glucose (UA) >1000 H (NEGATIVE) mg/dL Urine Ketones 50 H (NEGATIVE) mg/dL Urine Occult Blood Moderate H (NEGATIVE) Urine Nitrite Negative (NEGATIVE) Urine Bilirubin Negative (NEGATIVE) Urine Urobilinogen Normal (NEGATIVE) mg/dL Ur Leukocyte Esterase Negative (NEGATIVE) Urine RBC 0-5 (0) Urine WBC 0-5 (0) Ur Squamous Epith Cells Occasional (NS,R,O) Urine Bacteria Rare H (NS) Urine Opiates Screen (NEGATIVE) Ur Oxycodone Screen (NEGATIVE) Ur Propoxyphene Screen (NEGATIVE) Ur Barbituates Screen (NEGATIVE) Ur Tricyclics Screen (NEGATIVE) Ur Phencyclidine Scrn (NEGATIVE) Ur Amphetamine Screen (NEGATIVE) Urine MDMA Screen (NEGATIVE) U Benzodiazepines Scrn (NEGATIVE) U Cocaine Metab Screen (NEGATIVE) U Marijuana (THC) Screen (NEGATIVE) Med Orders - Current: Current Medications Atorvastatin Calcium (Lipitor) 10 mg PO DAILY [facility] Folic Acid (Folic Acid) 1 mg PO DAILY [facility] Lactated Ringer's (Ringers, Lactated) 1,000 mls @ 125 mls/hr IV ASDIRECTED [facility] Last Admin: 04/14/17 00:53 Dose: 125 mls/hr Insulin Aspart (Novolog) 0 unit SUBCUT TIDMEALS [facility] PRN Reason: Protocol Last Admin: 04/13/17 16:30 Dose: Not Given Lisinopril (Prinivil) 20 mg PO DAILY [facility] Lorazepam (Ativan) 1 mg IV Q2H PRN PRN Reason: Nausea/Vomiting Last Admin: 04/13/17 23:43 Dose: 1 mg Metoprolol Succinate (Toprol Xl) 12.5 mg PO BID [facility] Last Admin: 04/13/17 20:10 Dose: 12.5 mg Naltrexone HCl (Naltrexone) 50 mg PO DAILY [facility] Non-Formulary Medication (Insulin Glargine,Hum.Rec.Anlog [Lantus Solostar]) 28 unit SQ BEDTIME [facility] Sertraline HCl (Zoloft) 100 mg PO DAILY [facility] Sodium Chloride (Saline Flush) 10 ml FLUSH ASDIRECTED PRN PRN Reason: Keep Vein Open Last Admin: 04/13/17 16:23 Dose: 10 ml Thiamine HCl (Vitamin B-1) 100 mg IV DAILY [facility] Last Admin: 04/13/17 18:23 Dose: 100 mg Trazodone HCl (Trazodone) 100 mg PO BEDTIME [facility] Last Admin: 04/13/17 20:15 Dose: Not Given Discontinued Medications Clonidine HCl (Catapres) 0.1 mg PO ONETIME ONE Stop: 04/13/17 16:05 Last Admin: 04/13/17 16:40 Dose: Not Given Sodium Chloride (Normal Saline) 1,000 mls @ 999 mls/hr IV .BOLUS ONE Stop: 04/13/17 15:44 Last Admin: 04/13/17 15:17 Dose: 999 mls/hr Lactated Ringer's (Ringers, Lactated) 1,000 mls @ 125 mls/hr IV ASDIRECTED [facility] Insulin Human Regular (Humulin R) 7 unit SUBCUT BIDAC [facility] PRN Reason: Protocol Insulin Human Regular (Humulin R) 7 unit SUBCUT BIDAC STA PRN Reason: Protocol Stop: 04/13/17 15:04 Last Admin: 04/13/17 15:11 Dose: 7 units Insulin Human Regular (Humulin R) 10 unit SUBCUT ONETIME STA PRN Reason: Protocol Stop: 04/13/17 16:06 Last Admin: 04/13/17 16:47 Dose: Not Given Labetalol HCl (Normodyne) 10 mg IVPUSH ONETIME ONE PRN Reason: Protocol Stop: 04/13/17 16:09 Last Admin: 04/13/17 16:39 Dose: Not Given Lorazepam (Ativan) 1 mg IVPUSH ONETIME ONE Stop: 04/13/17 14:53 Last Admin: 04/13/17 15:04 Dose: 1 mg Lorazepam (Ativan) 1 mg IVPUSH ONETIME STA Stop: 04/13/17 16:08 Last Admin: 04/13/17 16:21 Dose: 1 mg Lorazepam (Ativan) 1 mg IV Q4H PRN PRN Reason: Nausea/Vomiting Trazodone HCl (Trazodone) Confirm Administered Dose 100 mg .ROUTE .STK-MED ONE Stop: 04/13/17 20:08 Last Admin: 04/13/17 20:11 Dose: 100 mg - Exam General: Alert, Oriented, Cooperative Lungs: Clear to Auscultation, Normal Respiratory Effort Cardiovascular: Regular Rhythm, No Murmurs, Tachycardia Extremities: No Pedal Edema, Other (No tremors) - Problem List & Annotations (1) Alcohol withdrawal SNOMED Code(s): 506536618 Code(s): F10.239 - ALCOHOL DEPENDENCE WITH WITHDRAWAL, UNSPECIFIED Status: Acute Current Visit: Yes Qualifiers: Complication of substance-induced condition: with unspecified complication Qualified Code(s): F10.239 - Alcohol dependence with withdrawal, unspecified (2) Diabetes type 1, uncontrolled SNOMED Code(s): 87253105 Code(s): E10.65 - TYPE 1 DIABETES MELLITUS WITH HYPERGLYCEMIA Status: Acute Current Visit: Yes (3) EtOH dependence SNOMED Code(s): 26667196 Code(s): F10.20 - ALCOHOL DEPENDENCE, UNCOMPLICATED Status: Acute Current Visit: Yes Qualifiers: Substance use status: other alcohol-induced disorder Qualified Code(s): F10.288 - Alcohol dependence with other alcohol-induced disorder (4) HTN (hypertension) SNOMED Code(s): 23458059 Code(s): I10 - ESSENTIAL (PRIMARY) HYPERTENSION Status: Acute Current Visit: Yes Qualifiers: Hypertension type: essential hypertension Qualified Code(s): I10 - Essential (primary) hypertension (5) Hyponatremia SNOMED Code(s): 46929279 Code(s): E87.1 - HYPO-OSMOLALITY AND HYPONATREMIA Status: Acute Current Visit: Yes (6) Seizure due to alcohol withdrawal SNOMED Code(s): 238224865 Code(s): F10.239 - ALCOHOL DEPENDENCE WITH WITHDRAWAL, UNSPECIFIED; R56.9 - UNSPECIFIED CONVULSIONS Status: Acute Current Visit: Yes Qualifiers: Complication of substance-induced condition: with unspecified complication Qualified Code(s): F10.239 - Alcohol dependence with withdrawal, unspecified; R56.9 - Unspecified convulsions; R56.9 - Unspecified convulsions; R56.9 - Unspecified convulsions; R56.9 - Unspecified convulsions - Problem List Review Problem List Initiated/Reviewed/Updated: Yes - My Orders Last 24 Hours: My Active Orders 04/14/17 21:00 Insulin Glargine,Hum.Rec.Anlog [Lantus Solostar] 28 unit SQ BEDTIME - Plan Plan:: 1. DC IV fluids he is maintaining orals. 2. Saline lock IV. 3. Continue alcohol withdrawal. Patient still has elevated blood pressure and pulse although his tremors are improved. I don't want to send him home to know that he's not withdrawing. 4. Continue the sliding scale of his insulin. Accu-Cheks 4 times a day. Restart Lantus 28 units. 5. Up ad adilson.
[2017-04-14] MEDS: atorvaSTATin 10 MG Tab PO SCH (08:16)
[2017-04-14] MEDS: Thiamine 200 MG/2 ML MDV IV SCH (08:16)
[2017-04-14] MEDS: Folic Acid 1 MG Tab PO SCH (08:16)
[2017-04-14] MEDS: Lisinopril 20 MG Tab PO SCH (08:16)
[2017-04-14] MEDS: Sertraline 100 MG Tab PO SCH (08:16)
[2017-04-14] MEDS: Naltrexone 50 MG Tab PO SCH (08:16)
[2017-04-14] MEDS: Insulin Aspart 100 Units/ML 3 ML Pen SUBCUT SCH ×3 (08:18→17:28)
[2017-04-14] MEDS ORDERED: Amylase/Lipase/Protease 5,000 Unit Cap.CR PO PRN (08:30)
[2017-04-14] MEDS: Multivitamin Tab PO SCH (09:03)
[2017-04-14] MEDS: Metoprolol Tartrate 25 MG Tab PO SCH ×2 (09:03→20:19)
[2017-04-14] MEDS: Amylase/Lipase/Protease 5,000 Unit Cap.CR PO SCH ×3 (09:10→17:31)
[2017-04-14] MEDS: Sodium Chloride 0.9% 10 ML Syringe FLUSH PRN ×4 (09:16→23:38)
[2017-04-14] MEDS: LORazepam 2 MG/ML MDV IV PRN (09:16)
[2017-04-14] MEDS: LORazepam 2 MG/ML MDV IVPUSH PRN ×3 (11:59→23:37)
[2017-04-14] MEDS: traZODone 100 MG Tab PO SCH (20:20)
[2017-04-14] MEDS ORDERED: Insulin Detemir 100 Units/ML 3 ML Pen SUBCUT SCH (21:00)
[2017-04-15] MEDS: Insulin Aspart 100 Units/ML 3 ML Pen SUBCUT SCH (08:13)
[2017-04-15] MEDS: Amylase/Lipase/Protease 5,000 Unit Cap.CR PO SCH (08:14)
[2017-04-15] MEDS: Lisinopril 20 MG Tab PO SCH (08:16)
[2017-04-15] MEDS: atorvaSTATin 10 MG Tab PO SCH (08:17)
[2017-04-15] MEDS: Folic Acid 1 MG Tab PO SCH (08:17)
[2017-04-15] MEDS: Sertraline 100 MG Tab PO SCH (08:17)
[2017-04-15] MEDS: Metoprolol Tartrate 25 MG Tab PO SCH (08:17)
[2017-04-15] MEDS: Multivitamin Tab PO SCH (08:18)
[2017-04-15] MEDS: Thiamine 200 MG/2 ML MDV IV SCH (08:18)
[2017-04-15] MEDS: Naltrexone 50 MG Tab PO SCH (08:18)
--- NOTE | 2017-04-15 08:39 | PCM.PN ---
- General Info Date of Service: 04/15/17 Admission Dx/Problem (Free Text): This patient is without complaints. He states he is having no shaking, sweats. Nurses report that his blood pressure pulse are normal back to normal. - Patient Data Vitals - Most Recent: Last Vital Signs Temp 97.6 F 04/15/17 08:31 Pulse 98 04/15/17 08:31 Resp 18 04/15/17 08:31 BP 136/74 04/15/17 08:31 Pulse Ox 100 04/15/17 08:31 Weight - Most Recent: 147 lb 8 oz I&O - Last 24 Hours: Intake & Output 04/14/17 04/15/17 04/15/17 22:59 06:59 14:59 Intake Total 550 750 Output Total 1400 400 Balance -850 350 Lab Results Last 24 Hours: Laboratory Results - last 24 hr 04/14/17 04/14/17 04/14/17 Range/Units 11:23 17:24 20:15 POC Glucose 304 H 285 H 288 H (80-116) mg/dL 04/15/17 04/15/17 Range/Units 08:07 08:29 POC Glucose 43 L D 109 (80-116) mg/dL Med Orders - Current: Current Medications Lipase/Protease/Amylase (Pancrelipase 5,000) 4 cap PO TID PRN PRN Reason: SNACKS Last Admin: 04/14/17 09:03 Dose: 4 cap Lipase/Protease/Amylase (Pancrelipase 5,000) 4 cap PO TIDMEALS [facility] Last Admin: 04/15/17 08:14 Dose: 4 cap Atorvastatin Calcium (Lipitor) 10 mg PO DAILY [facility] Last Admin: 04/15/17 08:17 Dose: 10 mg Folic Acid (Folic Acid) 1 mg PO DAILY [facility] Last Admin: 04/15/17 08:17 Dose: 1 mg Insulin Aspart (Novolog) 0 unit SUBCUT TIDMEALS [facility] PRN Reason: Protocol Last Admin: 04/15/17 08:13 Dose: Not Given Insulin Detemir (Levemir) 28 unit SUBCUT BEDTIME [facility] Last Admin: 04/14/17 20:21 Dose: 28 units Lisinopril (Prinivil) 20 mg PO DAILY [facility] Last Admin: 04/15/17 08:16 Dose: 20 mg Lorazepam (Ativan) 1 mg IVPUSH Q1H PRN PRN Reason: Withdrawal Symptoms Last Admin: 04/14/17 23:37 Dose: 1 mg Metoprolol Tartrate (Lopressor) 12.5 mg PO BID [facility] Last Admin: 04/15/17 08:17 Dose: 12.5 mg Multivitamins/Minerals/Vitamin C (Tab-A-Santos) 1 tab PO DAILY [facility] Last Admin: 04/15/17 08:18 Dose: 1 tab Naltrexone HCl (Naltrexone) 50 mg PO DAILY [facility] Last Admin: 04/15/17 08:18 Dose: 50 mg Sertraline HCl (Zoloft) 100 mg PO DAILY [facility] Last Admin: 04/15/17 08:17 Dose: 100 mg Sodium Chloride (Saline Flush) 10 ml FLUSH ASDIRECTED PRN PRN Reason: Keep Vein Open Last Admin: 04/14/17 23:38 Dose: 10 ml Thiamine HCl (Vitamin B-1) 100 mg IV DAILY [facility] Last Admin: 04/15/17 08:18 Dose: 100 mg Trazodone HCl (Trazodone) 100 mg PO BEDTIME [facility] Last Admin: 04/14/17 20:20 Dose: 100 mg Discontinued Medications Clonidine HCl (Catapres) 0.1 mg PO ONETIME ONE Stop: 04/13/17 16:05 Last Admin: 04/13/17 16:40 Dose: Not Given Sodium Chloride (Normal Saline) 1,000 mls @ 999 mls/hr IV .BOLUS ONE Stop: 04/13/17 15:44 Last Admin: 04/13/17 15:17 Dose: 999 mls/hr Lactated Ringer's (Ringers, Lactated) 1,000 mls @ 125 mls/hr IV ASDIRECTED [facility] Lactated Ringer's (Ringers, Lactated) 1,000 mls @ 125 mls/hr IV ASDIRECTED [facility] Last Admin: 04/14/17 00:53 Dose: 125 mls/hr Insulin Human Regular (Humulin R) 7 unit SUBCUT BIDAC [facility] PRN Reason: Protocol Insulin Human Regular (Humulin R) 7 unit SUBCUT BIDAC STA PRN Reason: Protocol Stop: 04/13/17 15:04 Last Admin: 04/13/17 15:11 Dose: 7 units Insulin Human Regular (Humulin R) 10 unit SUBCUT ONETIME STA PRN Reason: Protocol Stop: 04/13/17 16:06 Last Admin: 04/13/17 16:47 Dose: Not Given Labetalol HCl (Normodyne) 10 mg IVPUSH ONETIME ONE PRN Reason: Protocol Stop: 04/13/17 16:09 Last Admin: 04/13/17 16:39 Dose: Not Given Lorazepam (Ativan) 1 mg IVPUSH ONETIME ONE Stop: 04/13/17 14:53 Last Admin: 04/13/17 15:04 Dose: 1 mg Lorazepam (Ativan) 1 mg IVPUSH ONETIME STA Stop: 04/13/17 16:08 Last Admin: 04/13/17 16:21 Dose: 1 mg Lorazepam (Ativan) 1 mg IV Q4H PRN PRN Reason: Nausea/Vomiting Lorazepam (Ativan) 1 mg IV Q2H PRN PRN Reason: Nausea/Vomiting Last Admin: 04/14/17 09:16 Dose: 1 mg Metoprolol Succinate (Toprol Xl) 12.5 mg PO BID [facility] Last Admin: 04/13/17 20:10 Dose: 12.5 mg Trazodone HCl (Trazodone) Confirm Administered Dose 100 mg .ROUTE .STK-MED ONE Stop: 04/13/17 20:08 Last Admin: 04/13/17 20:11 Dose: 100 mg - Exam General: Alert, Oriented, Cooperative Lungs: Clear to Auscultation, Normal Respiratory Effort Cardiovascular: Regular Rate, Regular Rhythm, No Murmurs Extremities: Other (No tremors) - Problem List & Annotations (1) Alcohol withdrawal SNOMED Code(s): 623128432 Code(s): F10.239 - ALCOHOL DEPENDENCE WITH WITHDRAWAL, UNSPECIFIED Status: Acute Current Visit: Yes Qualifiers: Complication of substance-induced condition: with unspecified complication Qualified Code(s): F10.239 - Alcohol dependence with withdrawal, unspecified (2) Diabetes type 1, uncontrolled SNOMED Code(s): 50228262 Code(s): E10.65 - TYPE 1 DIABETES MELLITUS WITH HYPERGLYCEMIA Status: Acute Current Visit: Yes (3) EtOH dependence SNOMED Code(s): 52715942 Code(s): F10.20 - ALCOHOL DEPENDENCE, UNCOMPLICATED Status: Acute Current Visit: Yes Qualifiers: Substance use status: other alcohol-induced disorder Qualified Code(s): F10.288 - Alcohol dependence with other alcohol-induced disorder (4) HTN (hypertension) SNOMED Code(s): 53907136 Code(s): I10 - ESSENTIAL (PRIMARY) HYPERTENSION Status: Acute Current Visit: Yes Qualifiers: Hypertension type: essential hypertension Qualified Code(s): I10 - Essential (primary) hypertension (5) Hyponatremia SNOMED Code(s): 08344528 Code(s): E87.1 - HYPO-OSMOLALITY AND HYPONATREMIA Status: Acute Current Visit: Yes (6) Seizure due to alcohol withdrawal SNOMED Code(s): 483532037 Code(s): F10.239 - ALCOHOL DEPENDENCE WITH WITHDRAWAL, UNSPECIFIED; R56.9 - UNSPECIFIED CONVULSIONS Status: Acute Current Visit: Yes Qualifiers: Complication of substance-induced condition: with unspecified complication Qualified Code(s): F10.239 - Alcohol dependence with withdrawal, unspecified; R56.9 - Unspecified convulsions; R56.9 - Unspecified convulsions; R56.9 - Unspecified convulsions; R56.9 - Unspecified convulsions - Problem List Review Problem List Initiated/Reviewed/Updated: Yes - My Orders Last 24 Hours: My Active Orders 04/14/17 08:13 Convert IV to Saline Lock [OM.PC] Routine 04/14/17 08:14 Up ad Gwendolyn [RC] ASDIRECTED 04/14/17 08:30 Amylase/Lipase/Protease [Pancrelipase 5,000] 4 cap PO TID PRN Amylase/Lipase/Protease [Pancrelipase 5,000] 4 cap PO TIDMEALS 04/14/17 09:00 Metoprolol Tartrate [Lopressor] 12.5 mg PO BID Multivitamins [Tab-A-Santos] 1 tab PO DAILY 04/14/17 10:42 LORazepam [Ativan] 1 mg IVPUSH Q1H PRN 04/14/17 21:00 Insulin Detemir [Levemir] 28 unit SUBCUT BEDTIME - Plan Plan:: 1. Discharge to home. 2. Recheck with Dr. Chou in [facility] in 1 week. 3. Same home medications but [place] 100 mg a day plus a multivitamin 4. Discuss alcohol cessation again with the patient and importance to his overall health.
--- NOTE | 2017-04-15 08:42 | PCM.DCSUM1 ---
Discharge Summary - Hospital Course Free Text/Narrative:: Patient was admitted for alcohol withdrawal. Seizure and seizure precautions were instituted. Patient did not have a seizure at our institution. It is felt to be from his alcohol withdrawal which he has had a seizure previously from alcohol withdrawal. Patient was given Ativan on the protocol. He did withdrawal including an elevated blood pressure, pulse sweats and shakes. Did discuss alcohol treatment and consultation. Patient states it does not help him and does not want to do this. Was also discussed with the patient that his health is been affected which include including elevated liver functions. He was given thiamine and the other vitamins for his withdrawal. He stop withdrawing and never had a seizure. We'll discharge him home on 100 milligrams of thiamine a day, multivitamins and his regular diabetes and pancreas medications. He is to follow-up with his doctor in [place] who is Dr. Chou. He does not know his first name at this time. Brief History: 52-year-old male known to have alcohol dependence. Was brought to by law enforcement after he had a tonic-clonic seizure at the senior living. Currently I am not sure how long it lasted but he was post ictal at the ER, with no bowel or urine incontinence. He stated that he has had a seizure before, about 4 years ago also while withdrawing from alcohol also. He was here yesterday,but discharged to the To the senior living. His ETOH level was 0.37. He also states that he has Type 1 diabetes of unknown control. He has depression, hypertension and a history of coronary disease previously stable.At the time that I examined him,he complains of no headache no chest pain. He feels slightly anxious trembling and sweaty. He currently sees Dr. Chou in [facility] - Discharge Data Discharge Date: 04/15/17 Discharge Disposition: Home, Self-Care 01 Condition: Fair - Discharge Diagnosis/Problem(s) (1) Alcohol withdrawal SNOMED Code(s): 695466899 ICD Code: F10.239 - ALCOHOL DEPENDENCE WITH WITHDRAWAL, UNSPECIFIED Status : Acute Current Visit: Yes Qualifiers: Complication of substance-induced condition: with unspecified complication Qualified Code(s): F10.239 - Alcohol dependence with withdrawal, unspecified (2) Diabetes type 1, uncontrolled SNOMED Code(s): 77307637 ICD Code: E10.65 - TYPE 1 DIABETES MELLITUS WITH HYPERGLYCEMIA Status: Acute Current Visit: Yes (3) EtOH dependence SNOMED Code(s): 18798811 ICD Code: F10.20 - ALCOHOL DEPENDENCE, UNCOMPLICATED Status: Acute Current Visit: Yes Qualifiers: Substance use status: other alcohol-induced disorder Qualified Code(s): F10.288 - Alcohol dependence with other alcohol-induced disorder (4) HTN (hypertension) SNOMED Code(s): 20638418 ICD Code: I10 - ESSENTIAL (PRIMARY) HYPERTENSION Status: Acute Current Visit: Yes Qualifiers: Hypertension type: essential hypertension Qualified Code(s): I10 - Essential (primary) hypertension (5) Hyponatremia SNOMED Code(s): 85640016 ICD Code: E87.1 - HYPO-OSMOLALITY AND HYPONATREMIA Status: Acute Current Visit: Yes (6) Seizure due to alcohol withdrawal SNOMED Code(s): 074962416 ICD Code: F10.239 - ALCOHOL DEPENDENCE WITH WITHDRAWAL, UNSPECIFIED; R56.9 - UNSPECIFIED CONVULSIONS Status: Acute Current Visit: Yes Qualifiers: Complication of substance-induced condition: with unspecified complication Qualified Code(s): F10.239 - Alcohol dependence with withdrawal, unspecified; R56.9 - Unspecified convulsions; R56.9 - Unspecified convulsions; R56.9 - Unspecified convulsions; R56.9 - Unspecified convulsions - Patient Instructions Diet: Diabetic Diet Activity: As Tolerated Driving: May Drive Today Showering/Bathing: May Shower Other/Special Instructions: 1. Recheck with Dr. Chou in [facility] his new doctor in 1 week. 2. Again discussed alcohol abstinence with the patient. - Discharge Plan Prescriptions/Med Rec: Thiamine [Vitamin B-1] 100 mg PO BEDTIME #30 tab Home Medications: Home Meds Amylase/Lipase/Protease [Rashida CRANDALL 24,000 Unit] 1 cap PO TIDMEALS 04/13/17 [ History] Folic Acid 1 mg PO DAILY 04/13/17 [History] Insulin Aspart [Novolog Flexpen] 3 - 6 unit SQ TIDMEALS 04/13/17 [History] Insulin Glargine,Hum.Rec.Anlog [Lantus Solostar] 28 unit SQ BEDTIME 04/13/17 [ History] LORazepam 1 mg PO TID PRN 04/13/17 [History] Lisinopril 20 mg PO DAILY 04/13/17 [History] Naltrexone 50 mg PO DAILY 04/13/17 [History] Sertraline [Zoloft] 100 mg PO DAILY 04/13/17 [History] atorvaSTATin [Lipitor] 10 mg PO DAILY 04/13/17 [History] traZODone 100 mg PO BEDTIME 04/13/17 [History] Amylase/Lipase/Protease [Rashida CRANDALL 24,000 Unit] 1 cap PO TID PRN 04/14/17 [ History] Metoprolol Tartrate [Lopressor] 12.5 mg PO BID 04/14/17 [History] Multivitamin [Daily Santos] 1 tab PO DAILY 04/14/17 [History] Thiamine [Vitamin B-1] 100 mg PO BEDTIME #30 tab 04/15/17 [Rx] Forms: ED Department Discharge Referrals: PCP,None [Primary Care Provider] - - Patient Data Vitals - Most Recent: Last Vital Signs Temp 97.6 F 04/15/17 08:31 Pulse 98 04/15/17 08:31 Resp 18 04/15/17 08:31 BP 136/74 04/15/17 08:31 Pulse Ox 100 04/15/17 08:31 Weight - Most Recent: 147 lb 8 oz I&O - Last 24 hours: Intake & Output 04/14/17 04/15/17 04/15/17 22:59 06:59 14:59 Intake Total 550 750 Output Total 1400 400 Balance -850 350 Lab Results - Last 24 hrs: Laboratory Results - last 24 hr 04/14/17 04/14/17 04/14/17 Range/Units 11:23 17:24 20:15 POC Glucose 304 H 285 H 288 H (80-116) mg/dL 04/15/17 04/15/17 Range/Units 08:07 08:29 POC Glucose 43 L D 109 (80-116) mg/dL Med Orders - Current: Current Medications Lipase/Protease/Amylase (Pancrelipase 5,000) 4 cap PO TID PRN PRN Reason: SNACKS Last Admin: 04/14/17 09:03 Dose: 4 cap Lipase/Protease/Amylase (Pancrelipase 5,000) 4 cap PO TIDMEALS PEGGY Last Admin: 04/15/17 08:14 Dose: 4 cap Atorvastatin Calcium (Lipitor) 10 mg PO DAILY PEGGY Last Admin: 04/15/17 08:17 Dose: 10 mg Folic Acid (Folic Acid) 1 mg PO DAILY [facility] Last Admin: 04/15/17 08:17 Dose: 1 mg Insulin Aspart (Novolog) 0 unit SUBCUT TIDMEALS PEGGY PRN Reason: Protocol Last Admin: 04/15/17 08:13 Dose: Not Given Insulin Detemir (Levemir) 28 unit SUBCUT BEDTIME [facility] Last Admin: 04/14/17 20:21 Dose: 28 units Lisinopril (Prinivil) 20 mg PO DAILY [facility] Last Admin: 04/15/17 08:16 Dose: 20 mg Lorazepam (Ativan) 1 mg IVPUSH Q1H PRN PRN Reason: Withdrawal Symptoms Last Admin: 04/14/17 23:37 Dose: 1 mg Metoprolol Tartrate (Lopressor) 12.5 mg PO BID [facility] Last Admin: 04/15/17 08:17 Dose: 12.5 mg Multivitamins/Minerals/Vitamin C (Tab-A-Santos) 1 tab PO DAILY [facility] Last Admin: 04/15/17 08:18 Dose: 1 tab Naltrexone HCl (Naltrexone) 50 mg PO DAILY [facility] Last Admin: 04/15/17 08:18 Dose: 50 mg Sertraline HCl (Zoloft) 100 mg PO DAILY [facility] Last Admin: 04/15/17 08:17 Dose: 100 mg Sodium Chloride (Saline Flush) 10 ml FLUSH ASDIRECTED PRN PRN Reason: Keep Vein Open Last Admin: 04/14/17 23:38 Dose: 10 ml Thiamine HCl (Vitamin B-1) 100 mg IV DAILY [facility] Last Admin: 04/15/17 08:18 Dose: 100 mg Trazodone HCl (Trazodone) 100 mg PO BEDTIME [facility] Last Admin: 04/14/17 20:20 Dose: 100 mg Discontinued Medications Clonidine HCl (Catapres) 0.1 mg PO ONETIME ONE Stop: 04/13/17 16:05 Last Admin: 04/13/17 16:40 Dose: Not Given Sodium Chloride (Normal Saline) 1,000 mls @ 999 mls/hr IV .BOLUS ONE Stop: 04/13/17 15:44 Last Admin: 04/13/17 15:17 Dose: 999 mls/hr Lactated Ringer's (Ringers, Lactated) 1,000 mls @ 125 mls/hr IV ASDIRECTED PEGGY Lactated Ringer's (Ringers, Lactated) 1,000 mls @ 125 mls/hr IV ASDIRECTED [facility] Last Admin: 04/14/17 00:53 Dose: 125 mls/hr Insulin Human Regular (Humulin R) 7 unit SUBCUT BIDAC PEGGY PRN Reason: Protocol Insulin Human Regular (Humulin R) 7 unit SUBCUT BIDAC STA PRN Reason: Protocol Stop: 04/13/17 15:04 Last Admin: 04/13/17 15:11 Dose: 7 units Insulin Human Regular (Humulin R) 10 unit SUBCUT ONETIME STA PRN Reason: Protocol Stop: 04/13/17 16:06 Last Admin: 04/13/17 16:47 Dose: Not Given Labetalol HCl (Normodyne) 10 mg IVPUSH ONETIME ONE PRN Reason: Protocol Stop: 04/13/17 16:09 Last Admin: 04/13/17 16:39 Dose: Not Given Lorazepam (Ativan) 1 mg IVPUSH ONETIME ONE Stop: 04/13/17 14:53 Last Admin: 04/13/17 15:04 Dose: 1 mg Lorazepam (Ativan) 1 mg IVPUSH ONETIME STA Stop: 04/13/17 16:08 Last Admin: 04/13/17 16:21 Dose: 1 mg Lorazepam (Ativan) 1 mg IV Q4H PRN PRN Reason: Nausea/Vomiting Lorazepam (Ativan) 1 mg IV Q2H PRN PRN Reason: Nausea/Vomiting Last Admin: 04/14/17 09:16 Dose: 1 mg Metoprolol Succinate (Toprol Xl) 12.5 mg PO BID [facility] Last Admin: 04/13/17 20:10 Dose: 12.5 mg Trazodone HCl (Trazodone) Confirm Administered Dose 100 mg .ROUTE .STK-MED ONE Stop: 04/13/17 20:08 Last Admin: 04/13/17 20:11 Dose: 100 mg *Q Meaningful Use (DIS) - VTE *Q VTE Criteria *Q: - Stroke *Q Stroke Criteria *Q: - AMI *Q AMI Criteria *Q:
== END 2017-04-15 10:26 | disposition home or self-care (01) | DRG 897 ==
LOC: FB.ED 14:41 → FB.ICU 16:14
PROVIDERS: ADMIT Family Medicine; ATTEND Family Medicine
DX: F10.239 Alcohol dependence with withdrawal, unspecified (principal); E87.1 Hypo-osmolality and hyponatremia; R56.9 Unspecified convulsions; I10 Essential (primary) hypertension; F10.288 Alcohol dependence with other alcohol-induced disorder; E10.65 Type 1 diabetes mellitus with hyperglycemia; I25.2 Old myocardial infarction; I25.10 Atherosclerotic heart disease of native coronary artery without angina pectoris; F32.9 Major depressive disorder, single episode, unspecified; S09.90XA Unspecified injury of head, initial encounter; Z79.4 Long term (current) use of insulin
CPT/HCPCS: 36415; 70450; 80048; 80053; 80076; 80305; 81001; 82550; 82803; 82962; 83036; 83735; 84100; 85025; 85027; 96361; 96372; 96374; 96376; 99285; A9270-GY; G0480; J1815; J2060; J3411; J7040; J7050; J7120